=== PATIENT | male | born 1970 | race Hispanic/Latino ===

== ENCOUNTER 2018-06-25 09:53 | Emergency (ER) | payer OTHER ==
[2018-06-25] MEDS ORDERED: VITAMIN B-1 100 MG, FOLVITE 1 MG, INFUVITE 10 ML in NACL 0.9% 1000 ML 1,000 ML IV ONE (10:35)
[2018-06-25] MEDS ORDERED: VITAMIN B-1 PO ONE (11:00)
[2018-06-25] MEDS ORDERED: FOLVITE 1 MG, INFUVITE 10 ML in NACL 0.9% 1000 ML 1,000 ML IV ONE (11:00)
[2018-06-25 11:37] LABS: Basophils % (Auto) 0.8 % (0.0-1.8); Eosinophils # (Auto) 0.1 K/mm3 (0.0-0.4); Eosinophils % (Auto) 2.6 % (0.0-4.3); Hematocrit 31.5 % (35.5-45.6); Hemoglobin 10.9 gm/dl (11.8-15.2); Lymphocytes # (Auto) 0.8 K/mm3 (1.2-5.4); Lymphocytes % (Auto) 16.7 % (13.4-35.0); Mean Corpuscular HGB Conc 35 % (32-34); Mean Corpuscular Volume 99 fl (84-94); Monocytes # (Auto) 0.5 K/mm3 (0.0-0.8); Monocytes % (Auto) 9.8 % (0.0-7.3); Platelet Count 223 K/mm3 (140-440); Red Blood Count 3.17 M/mm3 (3.65-5.03)
[2018-06-25 11:42] LABS: Alanine Aminotransferase 26 units/L (7-56); BUN/Creatinine Ratio 23; Blood Urea Nitrogen 14 mg/dL (9-20); Calcium 9.4 mg/dL (8.4-10.2); Hemolysis Index 23
--- NOTE | 2018-06-25 11:43 | Cat Scan Report ---
PROCEDURE: CT HEAD/BRAIN WO CON TECHNIQUE: Multiple contrasted axial images were obtained through the brain without administration o f IV contrast. HISTORY: ams, etoh abuse COMPARISONS: None. FINDINGS: There is normal brain volume for the patient's age. There is normal dickey-white differentiation. There is no parenchymal hemorrhage or extra-axial fluid collection. There is no mass or mass effect. There is no acute territorial infarct. The ventricles are midline. The subarachnoid spaces and basilar cis terns are clear. The ventricles are midline and are not enlarged. There is no skull fracture. There i s mild mucosal disease of the bilateral ethmoid sinuses. Mastoid air cells are clear. IMPRESSION: No acute intracranial abnormality. This document is electronically signed by Patricia Miles MD., June 25 2018 11:41:28 AM ET
--- NOTE | 2018-06-25 12:26 | Emergency Department Report ---
ED Altered Mental Status HPI - General Chief Complaint: Altered Mental Status Stated Complaint: ABD PAIN Time Seen by Provider: 06/25/18 10:26 Source: EMS Mode of arrival: Stretcher Limitations: Altered Mental Status - History of Present Illness Initial Comments: 47-year-old male with a past medical history of hypertension and alcohol abuse presents to the hospital with alteration in mental status from rehabilitation facility. They report that he has been drowsy for the last 24 hours. Patient complains of made aching abdominal pain that is constant and no bowel movement for the past 3 days. He is drowsy and slow with his speech but otherwise clear. He states he has been in the inpatient rehabilitation facility for the past 2 days. His last drink was 13 days ago. Patient states he is currently being treated with Librium. Patient complains of nausea without vomiting. No other pain reported. No previous abdominal surgery reported. Patient did not come to the ER with any paperwork from his inpatient rehabilitation facility. Nurse was finally able to get a hold up somewhat at the facility after multiple attempts during ED stay. Patient apparently was at the rehabilitation facility [facility] in [place] for 7 days for alcohol abuse and benzo withdrawal from Xanax abuse. He was treated with Risperdal and Paxil at that facility. Patient was then transferred to [facility] on the . He was not treated with Risperdal and Paxil but was placed on a Librium taper protocol. It is documented that patient was confused upon admission. On the he received Librium 100 mg 3 times a day, the he received Librium 50 mg 3 times a day, and this morning he received 50 mg at 9 AM. She was also being treated with folic acid, thiamine, multivitamin, and Motrin. - Related Data Previous Rx's Medication Instructions Recorded Last Taken Type Polyethylene Glycol 3350 [Miralax 17 gm PO QDAY PRN #7 packet 06/25/18 Unknown Rx 3350] Allergies Allergy/AdvReac Type Severity Reaction Status Date / Time No Known Allergies Allergy Unverified 06/25/18 10:21 ED Review of Systems ROS: Stated complaint: ABD PAIN Other details as noted in HPI Comment: All other systems reviewed and negative ED Past Medical Hx - Past Medical History Hx Hypertension: Yes - Social History Smoking Status: Current Some Day Smoker Substance Use Type: Alcohol (daily) - Medications Home Medications: Home Medications Medication Instructions Recorded Confirmed Last Taken Type Polyethylene Glycol 3350 [Miralax 17 gm PO QDAY PRN #7 packet 06/25/18 Unknown Rx 3350] ED Physical Exam - General Limitations: Altered Mental Status - Other Other exam information: General: No limitations, patient is alert in no acute distress Head exam: Atraumatic, normocephalic Eyes exam: Normal appearance, pupils equal reactive to light, extraocular movements intact, nonicteric sclera ENT: Dry mucous membranes Neck exam: Normal inspection, full range of motion, no meningismus nontender Respiratory exam: Clear to auscultation bilateral, no wheezes, rales, crackles Cardiovascular: Normal rate and rhythm, normal heart sounds Abdomen: Soft, nondistended, and nontender, with normal bowel sounds, no rebou nd, or guarding Extremity: Full range of motion normal inspection no deformity Back: Normal Inspection, full range of motion, no tenderness Neurologic: Drowsy, slow speech, oriented x3, cranial nerves intact, no motor or sensory deficit, no tremor Psychiatric: normal affect, normal mood Skin: Warm, dry, intact ED Course Vital Signs 06/25/18 06/25/18 10:12 13:12 Temperature 98.0 F Pulse Rate 80 74 Respiratory 18 16 Rate Blood Pressure 106/67 103/64 [Left] O2 Sat by Pulse 97 97 Oximetry - Lab Data Result diagrams: 06/25/18 11:11 06/25/18 11:11 Lab Results 06/25/18 06/25/18 06/25/18 Range/Units 11:11 11:11 11:11 WBC 4.7 (4.5-11.0) K/mm3 RBC 3.17 L (3.65-5.03) M/mm3 Hgb 10.9 L (11.8-15.2) gm/dl Hct 31.5 L (35.5-45.6) % MCV 99 H (84-94) fl MCH 34 H (28-32) pg MCHC 35 H (32-34) % RDW 13.0 L (13.2-15.2) % Plt Count 223 (140-440) K/mm3 Lymph % (Auto) 16.7 (13.4-35.0) % Brule % (Auto) 9.8 H (0.0-7.3) % Eos % (Auto) 2.6 (0.0-4.3) % Baso % (Auto) 0.8 (0.0-1.8) % Lymph # 0.8 L (1.2-5.4) K/mm3 Brule # 0.5 (0.0-0.8) K/mm3 Eos # 0.1 (0.0-0.4) K/mm3 Baso # 0.0 (0.0-0.1) K/mm3 Seg Neutrophils % 70.1 H (40.0-70.0) % Seg Neutrophils # 3.3 (1.8-7.7) K/mm3 POC ABG pH (7.35-7.45) POC ABG pCO2 (35-45) POC ABG pO2 (80-105) POC ABG HCO3 (22-26 mml/L) POC ABG Total CO2 (23-27mmol/L) POC ABG O2 Sat POC ABG Base Excess ((-2) - (+3)mmol/L) FiO2 % Sodium 140 (137-145) mmol/L Potassium 3.9 (3.6-5.0) mmol/L Chloride 101.5 (98-107) mmol/L Carbon Dioxide 31 H (22-30) mmol/L Anion Gap 11 mmol/L BUN 14 (9-20) mg/dL Creatinine 0.6 L (0.8-1.5) mg/dL Estimated GFR > 60 ml/min BUN/Creatinine Ratio 23 % Glucose 105 H (75-100) mg/dL Calcium 9.4 (8.4-10.2) mg/dL Magnesium 1.80 (1.7-2.3) mg/dL Total Bilirubin 0.20 (0.1-1.2) mg/dL AST 19 (5-40) units/L ALT 26 (7-56) units/L Alkaline Phosphatase 81 (35-129) units/L Ammonia (25-60) umol/L Total Protein 6.3 (6.3-8.2) g/dL Albumin 4.0 (3.9-5) g/dL Albumin/Globulin Ratio 1.7 % Lipase 42 (13-60) units/L Urine Color (Yellow) Urine Turbidity (Clear) Urine pH (5.0-7.0) Ur Specific [place] (1.003-1.030) Urine Protein (Negative) mg/dL Urine Glucose (UA) (Negative) mg/dL Urine Ketones (Negative) mg/dL Urine Blood (Negative) Urine Nitrite (Negative) Urine Bilirubin (Negative) Urine Urobilinogen (<2.0) mg/dL Ur Leukocyte Esterase (Negative) Urine WBC (Auto) (0.0-6.0) /HPF Urine RBC (Auto) (0.0-6.0) /HPF Urine Mucus /HPF Salicylates (2.8-20.0) mg/dL Urine Opiates Screen Urine Methadone Screen Acetaminophen (10.0-30.0) ug/mL Ur Barbiturates Screen Ur Phencyclidine Scrn Ur Amphetamines Screen U Benzodiazepines Scrn Urine Cocaine Screen U Marijuana (THC) Screen Drugs of Abuse Note Plasma/Serum Alcohol < 0.01 (0-0.07) % 06/25/18 06/25/18 06/25/18 Range/Units 11:11 11:11 11:42 WBC (4.5-11.0) K/mm3 RBC (3.65-5.03) M/mm3 Hgb (11.8-15.2) gm/dl Hct (35.5-45.6) % MCV (84-94) fl MCH (28-32) pg MCHC (32-34) % RDW (13.2-15.2) % Plt Count (140-440) K/mm3 Lymph % (Auto) (13.4-35.0) % Brule % (Auto) (0.0-7.3) % Eos % (Auto) (0.0-4.3) % Baso % (Auto) (0.0-1.8) % Lymph # (1.2-5.4) K/mm3 Brule # (0.0-0.8) K/mm3 Eos # (0.0-0.4) K/mm3 Baso # (0.0-0.1) K/mm3 Seg Neutrophils % (40.0-70.0) % Seg Neutrophils # (1.8-7.7) K/mm3 POC ABG pH (7.35-7.45) POC ABG pCO2 (35-45) POC ABG pO2 (80-105) POC ABG HCO3 (22-26 mml/L) POC ABG Total CO2 (23-27mmol/L) POC ABG O2 Sat POC ABG Base Excess ((-2) - (+3)mmol/L) FiO2 % Sodium (137-145) mmol/L Potassium (3.6-5.0) mmol/L Chloride (98-107) mmol/L Carbon Dioxide (22-30) mmol/L Anion Gap mmol/L BUN (9-20) mg/dL Creatinine (0.8-1.5) mg/dL Estimated GFR ml/min BUN/Creatinine Ratio % Glucose (75-100) mg/dL Calcium (8.4-10.2) mg/dL Magnesium (1.7-2.3) mg/dL Total Bilirubin (0.1-1.2) mg/dL AST (5-40) units/L ALT (7-56) units/L Alkaline Phosphatase (35-129) units/L Ammonia 47.0 (25-60) umol/L Total Protein (6.3-8.2) g/dL Albumin (3.9-5) g/dL Albumin/Globulin Ratio % Lipase (13-60) units/L Urine Color (Yellow) Urine Turbidity (Clear) Urine pH (5.0-7.0) Ur Specific [place] (1.003-1.030) Urine Protein (Negative) mg/dL Urine Glucose (UA) (Negative) mg/dL Urine Ketones (Negative) mg/dL Urine Blood (Negative) Urine Nitrite (Negative) Urine Bilirubin (Negative) Urine Urobilinogen (<2.0) mg/dL Ur Leukocyte Esterase (Negative) Urine WBC (Auto) (0.0-6.0) /HPF Urine RBC (Auto) (0.0-6.0) /HPF Urine Mucus /HPF Salicylates < 0.3 L (2.8-20.0) mg/dL Urine Opiates Screen Urine Methadone Screen Acetaminophen < 5.0 L (10.0-30.0) ug/mL Ur Barbiturates Screen Ur Phencyclidine Scrn Ur Amphetamines Screen U Benzodiazepines Scrn Urine Cocaine Screen U Marijuana (THC) Screen Drugs of Abuse Note Plasma/Serum Alcohol (0-0.07) % 06/25/18 06/25/18 06/25/18 Range/Units 13:03 13:03 15:20 WBC (4.5-11.0) K/mm3 RBC (3.65-5.03) M/mm3 Hgb (11.8-15.2) gm/dl Hct (35.5-45.6) % MCV (84-94) fl MCH (28-32) pg MCHC (32-34) % RDW (13.2-15.2) % Plt Count (140-440) K/mm3 Lymph % (Auto) (13.4-35.0) % Brule % (Auto) (0.0-7.3) % Eos % (Auto) (0.0-4.3) % Baso % (Auto) (0.0-1.8) % Lymph # (1.2-5.4) K/mm3 Brule # (0.0-0.8) K/mm3 Eos # (0.0-0.4) K/mm3 Baso # (0.0-0.1) K/mm3 Seg Neutrophils % (40.0-70.0) % Seg Neutrophils # (1.8-7.7) K/mm3 POC ABG pH 7.399 (7.35-7.45) POC ABG pCO2 43.4 (35-45) POC ABG pO2 85 (80-105) POC ABG HCO3 26.8 (22-26 mml/L) POC ABG Total CO2 28 (23-27mmol/L) POC ABG O2 Sat 96 POC ABG Base Excess 2 ((-2) - (+3)mmol/L) FiO2 21 % Sodium (137-145) mmol/L Potassium (3.6-5.0) mmol/L Chloride (98-107) mmol/L Carbon Dioxide (22-30) mmol/L Anion Gap mmol/L BUN (9-20) mg/dL Creatinine (0.8-1.5) mg/dL Estimated GFR ml/min BUN/Creatinine Ratio % Glucose (75-100) mg/dL Calcium (8.4-10.2) mg/dL Magnesium (1.7-2.3) mg/dL Total Bilirubin (0.1-1.2) mg/dL AST (5-40) units/L ALT (7-56) units/L Alkaline Phosphatase (35-129) units/L Ammonia (25-60) umol/L Total Protein (6.3-8.2) g/dL Albumin (3.9-5) g/dL Albumin/Globulin Ratio % Lipase (13-60) units/L Urine Color Yellow (Yellow) Urine Turbidity Clear (Clear) Urine pH 5.0 (5.0-7.0) Ur Specific [place] 1.023 (1.003-1.030) Urine Protein <15 mg/dl (Negative) mg/dL Urine Glucose (UA) Neg (Negative) mg/dL Urine Ketones Neg (Negative) mg/dL Urine Blood Neg (Negative) Urine Nitrite Neg (Negative) Urine Bilirubin Neg (Negative) Urine Urobilinogen < 2.0 (<2.0) mg/dL Ur Leukocyte Esterase Neg (Negative) Urine WBC (Auto) < 1.0 (0.0-6.0) /HPF Urine RBC (Auto) 3.0 (0.0-6.0) /HPF Urine Mucus Few /HPF Salicylates (2.8-20.0) mg/dL Urine Opiates Screen Presumptive negative Urine Methadone Screen Presumptive negative Acetaminophen (10.0-30.0) ug/mL Ur Barbiturates Screen Presumptive negative Ur Phencyclidine Scrn Presumptive negative Ur Amphetamines Screen Presumptive negative U Benzodiazepines Scrn Presumptive positive Urine Cocaine Screen Presumptive negative U Marijuana (THC) Screen Presumptive negative Drugs of Abuse Note Disclamer Plasma/Serum Alcohol (0-0.07) % - Radiology Data Radiology results: report reviewed ROCEDURE: CT HEAD/BRAIN WO CON TECHNIQUE: Multiple contrasted axial images were obtained through the brain without administration of IV contrast. HISTORY: ams, etoh abuse COMPARISONS: None. FINDINGS: There is normal brain volume for the patient's age. There is normal dickey-white differentiation. There is no parenchymal hemorrhage or extra-axial fluid collection. There is no mass or mass effect. There is no acute territorial infarct. The ventricles are midline. The subarachnoid spaces and basilar cisterns are clear. The ventricles are midline and are not enlarged. There is no skull fracture. There is mild mucosal disease of the bilateral ethmoid sinuses. Mastoid air cells are clear. IMPRESSION: No acute intracranial abnormality. - Medical Decision Making Patient ED workup unremarkable. I suspect the drowsiness is secondary to substance abuse issues as well as Librium taper. Patient's abdominal discomfort is secondary to constipation. A dose of lactulose providing in the ED and patient will be discharged on MiraLAX back to the inpatient alcohol detox program. - Differential Diagnosis encephalopathy, average drug reaction, CVA, constipation Critical Care Time: No Critical care attestation.: If time is entered above; I have spent that time in minutes in the direct care of this critically ill patient, excluding procedure time. ED Disposition Clinical Impression: Alcohol abuse, Benzodiazepine abuse, Adverse drug reaction, Drowsiness, Constipation Disposition: DC/TX-65 PSY HOSP/PSY UNIT Is pt being admited?: No Does the pt Need Aspirin: No Condition: Stable Instructions: Constipation (ED), Benzodiazepine Abuse (ED), Abuse of Alcohol (ED) Additional Instructions: Continue your treatment as provided by your inpatient facility. Prescriptions: Polyethylene Glycol 3350 [Miralax 3350] 17 gm PO QDAY PRN #7 packet PRN Reason: Constipation Referrals: [facility] [Provider Group] - 3-5 Days [facility] [Outside] - 3-5 Days Time of Disposition: 15:37
--- NOTE | 2018-06-25 12:50 | XRay Report ---
PROCEDURE: XR ABD SERIES W CXR 1V HISTORY: abd pain, no bm in 3 days COMPARISONS: None FINDINGS: Normal cardiomediastinal silhouette. No focal infiltrate, CHF changes, mass or pleural effusion. No pneumothorax. Unremarkable osseous structures. Nonobstructive, nonspecific bowel gas pattern. No dilated loops of bowel or free air within the abdomen. No abnormal calcifications overlie the genitourinary system. Large amount of retained stool throughout the large bowel loops and rectum. IMPRESSION: 1. Clear lungs. 2. Large amount of retained stool throughout the large bowel loops and rectum, que constipation. This document is electronically signed by Yazmin Cummings MD., June 25 2018 12:48:15 PM ET
[2018-06-25] MEDS ORDERED: VITAMIN B-1 ONE (13:16)
[2018-06-25 13:52] LABS: Bilirubin,Urine NEG (Negative); Blood,Urine NEG (Negative); Color,Urine Yellow (Yellow); Mucus,Urine FEW /HPF; Protein,Urine <15 mg/dL mg/dL (Negative); Urobilinogen,Urine < 2.0 mg/dL (<2.0); WBC,Urine < 1.0 /HPF (0.0-6.0)
[2018-06-25 14:03] LABS: Amphetamine Screen,Urine PRESUMPTIVE NEGATIVE; Cannabinoid Screen,Urine PRESUMPTIVE NEGATIVE; Cocaine Screen,Urine PRESUMPTIVE NEGATIVE; Methadone Screen,Urine PRESUMPTIVE NEGATIVE; Opiate Screen,Urine PRESUMPTIVE NEGATIVE
[2018-06-25 14:18] LABS: Benzodiazepines Screen,Urine PRESUMPTIVE POSITIVE
[2018-06-25] MEDS ORDERED: CEPHULAC PO ONE (14:51)
[2018-06-25] MEDS ORDERED: ALUM-MAG HYDROX-SIMETH 200-200-20MG/5ML PO ONE (18:07)
[2018-06-25 19:02] VITALS: BP 108/74
== END 2018-06-25 19:00 ==
LOC: ED 09:53
DX: K59.00 Constipation, unspecified (principal); R40.0 Somnolence; F10.10 Alcohol abuse, uncomplicated; F13.10 Sedative, hypnotic or anxiolytic abuse, uncomplicated; I10 Essential (primary) hypertension; F17.200 Nicotine dependence, unspecified, uncomplicated
CPT/HCPCS: 36415; 70450; 74022; 80053; 80307; 81001; 82140; 82803; 83690; 83735; 85025; 96365; 96366; 99285; G0480; J7030; 80320

== ENCOUNTER 2018-06-29 21:12 | Emergency (ER) | payer OTHER ==
--- NOTE | 2018-06-29 21:28 | Emergency Department Report ---
Blank Doc - Documentation Documentation: This is a 47-year-old male that presents with SI. Patient was in [facility] and tried to cut himself to left wrist. Detox placed patient on 1013 and was sent here for evaluation. This initial assessment/diagnostic orders/clinical plan/treatment(s) is/are subject to change based on patient's health status, clinical progression and re- assessment by fellow clinical providers in the ED. Further treatment and workup at subsequent clinical providers discretion. Patient/guardians urged not to elope from the ED as their condition may be serious if not clinically assessed and managed. Initial orders include: 1- Patient sent to MAIN ED for further evaluation and treatment 2- account consultant was notified to have patient be brought back [facility]. 3- RN was notified to keep patient as close range and observation until room available 4- Patient presents with substantial risk of imminent harm to self, appears to be so unable to care for his/her own physical health and safety as to create an imminently life-endangering crisis, and has committed/expressed life endangering crisis to self.
--- NOTE | 2018-06-29 21:53 | Emergency Department Report ---
ED Psych HPI - General Chief Complaint: Psych Stated Complaint: MH Time Seen by Provider: 06/29/18 21:41 Source: patient, EMS Mode of arrival: Stretcher Limitations: No Limitations - History of Present Illness Initial Comments: Patient is a 47-year-old male that presents to emergency room for medical clearance and suicidal ideations. Patient is currently at a detox unit and was sent here for cutting his wrist with a comb. Patient states he was cutting his wrists in order to kill himself. Patient states he is depressed and is having suicidal ideations. Patient states he wants to hurt himself. MD Complaint: suicidal ideation -: Sudden Associated Psychiatric Symptoms: depression, suicidal ideation History of same: Yes Quality: constant Improves With: none Worsens With: none Associated Symptoms: denies: confusion, headache, shortness of breath, nausea, vomiting, syncope, insomnia Treatments Prior to Arrival: placed on mental he If Self Harm: admits thoughts of, has plan, has acted on plan - Related Data Home Medications Medication Instructions Recorded Confirmed Last Taken No Known Home Medications [No 06/29/18 06/29/18 Unknown Reported Home Medications] Allergies Allergy/AdvReac Type Severity Reaction Status Date / Time No Known Allergies Allergy Unverified 06/25/18 10:21 ED Review of Systems ROS: Stated complaint: MH Other details as noted in HPI Constitutional: denies: chills, fever Eyes: denies: eye pain, eye discharge, vision change ENT: denies: ear pain, throat pain Respiratory: denies: cough, shortness of breath, wheezing Cardiovascular: denies: chest pain, palpitations Endocrine: no symptoms reported Gastrointestinal: denies: abdominal pain, nausea, diarrhea Genitourinary: denies: urgency, dysuria Musculoskeletal: denies: back pain, joint swelling, arthralgia Skin: denies: rash, lesions Neurological: denies: headache, weakness, paresthesias Psychiatric: depression, suicidal thoughts. denies: anxiety Hematological/Lymphatic: denies: easy bleeding, easy bruising ED Past Medical Hx - Past Medical History Previous Medical History?: Yes Hx Hypertension: Yes Additional medical history: ETOH Abuse - Surgical History Past Surgical History?: No - Family History Family history: no significant - Social History Smoking Status: Former Smoker Substance Use Type: Alcohol - Medications Home Medications: Home Medications Medication Instructions Recorded Confirmed Last Taken Type No Known Home Medications [No 06/29/18 06/29/18 Unknown History Reported Home Medications] ED Physical Exam - General Limitations: No Limitations General appearance: alert, in no apparent distress - Head Head exam: Present: atraumatic, normocephalic - Eye Eye exam: Present: normal appearance - ENT ENT exam: Present: mucous membranes moist - Neck Neck exam: Present: normal inspection - Respiratory Respiratory exam: Present: normal lung sounds bilaterally. Absent: respiratory distress - Cardiovascular Cardiovascular Exam: Present: regular rate, normal rhythm. Absent: systolic murmur, diastolic murmur, rubs, gallop - GI/Abdominal GI/Abdominal exam: Present: soft, normal bowel sounds - Rectal Rectal exam: Present: deferred - Extremities Exam Extremities exam: Present: normal inspection - Back Exam Back exam: Present: normal inspection - Neurological Exam Neurological exam: Present: alert, oriented X3 - Psychiatric Psychiatric exam: Present: depressed, flat affect, suicidal ideation - Skin Skin exam: Present: warm, dry, normal color, abrasion (to the left wrist). Absent: rash ED Course Vital Signs 06/29/18 06/29/18 21:19 22:33 Temperature 97.7 F 97.6 F Pulse Rate 87 81 Respiratory 18 18 Rate Blood Pressure 114/77 Blood Pressure 126/84 [Left] O2 Sat by Pulse 97 100 Oximetry - Reevaluation(s) Reevaluation #1: Initial evaluation done. Patient was placed on a 1013. 06/29/18 21:54 PT is medically clear. Patient will remain on 1013 and until accepted to appropriate psychiatric facility. 06/30/18 01:19 ED Medical Decision Making - Lab Data Result diagrams: 06/29/18 21:57 06/29/18 21:57 - Medical Decision Making Patient is a 47-year-old male presents emergency room with complaints of ousmane cidal ideation with attempt by cutting his wrists. Patient placed on 1013. Patient's labs were done and unremarkable. Remaining in the ER as an ER hold a 1013. - Differential Diagnosis suicidal ideation with attempt. Depression Critical care attestation.: If time is entered above; I have spent that time in minutes in the direct care of this critically ill patient, excluding procedure time. ED Disposition Clinical Impression: Suicidal ideation, Self-inflicted injury, Suicide attempt, Wrist abrasion, non- infected Suicidal behavior Qualifiers: Attempted self-injury: with attempted self-injury Qualified Code(s): T14.91XA - Suicide attempt, initial encounter Disposition: DC/TX-65 PSY HOSP/PSY UNIT Is pt being admited?: No Does the pt Need Aspirin: No Condition: Stable Referrals: SENG DE LA ROSA MD [Primary Care Provider] - 2-3 Days Time of Disposition: 01:24
[2018-06-29 22:23] LABS: Basophils % (Auto) 0.8 % (0.0-1.8); Eosinophils # (Auto) 0.1 K/mm3 (0.0-0.4); Eosinophils % (Auto) 2.2 % (0.0-4.3); Hematocrit 35.5 % (35.5-45.6); Hemoglobin 12.3 gm/dl (11.8-15.2); Lymphocytes # (Auto) 1.3 K/mm3 (1.2-5.4); Lymphocytes % (Auto) 22.2 % (13.4-35.0); Mean Corpuscular HGB Conc 35 % (32-34); Mean Corpuscular Volume 100 fl (84-94); Monocytes # (Auto) 0.5 K/mm3 (0.0-0.8); Monocytes % (Auto) 8.2 % (0.0-7.3); Platelet Count 328 K/mm3 (140-440); Red Blood Count 3.57 M/mm3 (3.65-5.03); Red Cell Distribution Width 13.3 % (13.2-15.2)
[2018-06-29 22:27] LABS: Bilirubin,Urine NEG (Negative); Blood,Urine NEG (Negative); Color,Urine Yellow (Yellow); Mucus,Urine 2+ /HPF; Protein,Urine <15 mg/dL mg/dL (Negative); Urobilinogen,Urine < 2.0 mg/dL (<2.0)
[2018-06-29 22:28] LABS: WBC,Urine < 1.0 /HPF (0.0-6.0)
[2018-06-29 22:37] LABS: Amphetamine Screen,Urine PRESUMPTIVE NEGATIVE; Cannabinoid Screen,Urine PRESUMPTIVE NEGATIVE; Cocaine Screen,Urine PRESUMPTIVE NEGATIVE; Methadone Screen,Urine PRESUMPTIVE NEGATIVE; Opiate Screen,Urine PRESUMPTIVE NEGATIVE
[2018-06-29 22:46] LABS: Alanine Aminotransferase 26 units/L (7-56); Albumin 4.3 g/dL (3.9-5); BUN/Creatinine Ratio 13; Blood Urea Nitrogen 13 mg/dL (9-20); Calcium 9.5 mg/dL (8.4-10.2); Hemolysis Index 7
[2018-06-29 22:55] LABS: Benzodiazepines Screen,Urine PRESUMPTIVE POSITIVE
[2018-06-30] MEDS ORDERED: ATIVAN PO PRN (02:17)
[2018-06-30] MEDS: ATIVAN PO PRN ×2 (02:37→09:16)
[2018-06-30 10:41] VITALS: BP 137/86
== END 2018-06-30 10:45 ==
LOC: EEVIPCON 21:12 → ED 21:12
DX: S60.812A Abrasion of left wrist, initial encounter (principal); F32.9 Major depressive disorder, single episode, unspecified; I10 Essential (primary) hypertension; Z87.891 Personal history of nicotine dependence; X78.8XXA Intentional self-harm by other sharp object, initial encounter; Y93.89 Activity, other specified; Y92.89 Other specified places as the place of occurrence of the external cause; Y99.8 Other external cause status
CPT/HCPCS: 36415; 80053; 80307; 81001; 85025; 99285; G0480; 80320